=== PATIENT | male | born 1945 | race Caucasian/White ===

== ENCOUNTER 2022-04-15 10:32 | Inpatient (IN) ==
[2022-04-15] MEDS ORDERED: Ondansetron 4 MG/2 ML VIAL ONE (10:39)
[2022-04-15] MEDS ORDERED: *HR* Rocuronium Bromide 50 MG/5 ML VIAL ONE ×2 (10:39→13:34)
[2022-04-15] MEDS ORDERED: *HR* Propofol 200 MG/20 ML VIAL IVP ONE (10:39)
[2022-04-15] MEDS ORDERED: Lidocaine -MPF 2% 5 ML VIAL ONE (10:39)
[2022-04-15] MEDS ORDERED: *HR* FentaNYL (PF) 100 MCG/2 ML VIAL ONE (10:39)
[2022-04-15] MEDS ORDERED: *HR* Phenylephrine 10 MG/ML VIAL ONE (10:46)
[2022-04-15] MEDS ORDERED: CeFAZolin Syr 2,000MG/20 ML 2,000 MG/20 ML SYRINGE IVPB ONE (11:02)
[2022-04-15] MEDS ORDERED: Ringers Solution, Lactated 1,000 ML IVC SCH (11:15)
[2022-04-15] MEDS ORDERED: Ondansetron 4 MG/2 ML VIAL IVP PRN ×3 (11:17→21:04)
[2022-04-15] MEDS ORDERED: Famotidine 20 MG/2 ML VIAL IVP ONE (11:17)
[2022-04-15] MEDS ORDERED: Acetaminophen IV 1,000 MG/100 ML BAG IVPB ONE (11:17)
[2022-04-15] MEDS ORDERED: Ketorolac 30 MG/ML VIAL IVP PRN (11:17)
[2022-04-15] MEDS ORDERED: *HR* Labetalol 20 MG/4 ML SYRINGE IVP PRN ×2 (11:17→17:55)
[2022-04-15] MEDS ORDERED: *HR* HYDROmorphone 2 MG TABLET PO PRN (11:17)
[2022-04-15] MEDS ORDERED: *HR* OxyCODONE Immed Rel 5 MG TABLET PO PRN (11:17)
[2022-04-15] MEDS ORDERED: *HR* Remifentanil 2 MG VIAL IVP ONE (12:09)
[2022-04-15] MEDS ORDERED: ceFAZolin 1,000 MG, Sodium Chloride IRRigation 1,000 ML IR ONE (12:10)
[2022-04-15] MEDS ORDERED: Heparin 1,000 UNITS/500 mL 500 ML ONE ×2 (12:32→16:53)
[2022-04-15] MEDS ORDERED: Lidocaine -MPF 4% 5 ML AMPUL ONE (12:42)
[2022-04-15] MEDS ORDERED: *HR* Heparin 5,000 UNIT/ML VIAL ONE (15:28)
[2022-04-15] MEDS ORDERED: Albumin Human 5% 12.5 GM/250 ML IV.SOLN ONE (15:50)
[2022-04-15] MEDS ORDERED: *HR* Labetalol 20 MG/4 ML SYRINGE IVP ONE (16:09)
[2022-04-15] MEDS ORDERED: Sugammadex Sodium 200 MG/2 ML VIAL IV ONE (16:14)
[2022-04-15] MEDS: *HR* HYDROmorphone (PF) 1 MG/ML SYRINGE IVP PRN ×2 (16:47→16:57)
[2022-04-15] MEDS ORDERED: Naloxone 0.4 MG/ML INJ IVP PRN (17:55)
[2022-04-15] MEDS ORDERED: Acetaminophen 325 MG TABLET PO PRN (17:55)
[2022-04-15] MEDS ORDERED: *HR* HYDROcodone/Acet 5/325 mg TABLET PO PRN (17:55)
[2022-04-15] MEDS: *HR* OxyCODONE Immed Rel 5 MG TABLET PO PRN (18:38)
[2022-04-15] MEDS: *HR* Metformin 500 MG TABLET PO SCH (20:41)
[2022-04-15] MEDS ORDERED: Morphine Sulfate 2 MG/ML SYRINGE IVP ONE (21:03)
[2022-04-15] MEDS ORDERED: Metoclopramide 10 MG/2 ML VIAL IVP ONE (21:03)
[2022-04-16] MEDS: CeFAZolin 2 GM/120 ML BAG IVPB SCH ×3 (00:09→16:19)
[2022-04-16] MEDS: *HR* OxyCODONE Immed Rel 5 MG TABLET PO PRN (03:59)
[2022-04-16 04:54] LABS: Basophils % 0.2 %; Hematocrit 22.2 % (37.5-50.1); Hemoglobin 7.1 g/dL (12.9-16.9); Immature Granulocytes % 0.9 % (0-4); Lymphocytes # 0.4 K/mcL (0.6-4.6); Lymphocytes % 7.6 %; Mean Corpuscular Hemoglobin 28.1 pg (28.0-33.3); Mean Corpuscular Volume 87.7 fL (83.0-100.0); Mean Platelet Volume 10.7 fL (9.4-12.4); Monocytes # 0.3 K/mcL (0.0-1.3); Monocytes % 5.6 %; Neutrophils # 4.9 K/mcL (1.6-8.9); Platelet Count 152 K/mcL (140-400); Red Blood Count 2.53 M/mcL (4.19-5.50); Red Cell Distribution Width 13.2 % (11.5-14.5); Segmented Neutrophils % 85.7 %; White Blood Count 5.7 K/mcL (4.3-11.1)
[2022-04-16 05:04] LABS: BUN/Creatinine Ratio 16 (6-26); Blood Urea Nitrogen 14 mg/dL (8-23); Calcium 8.1 mg/dL (8.6-10.3); Carbon Dioxide 24 mEq/L (23-29); Chloride 104 mEq/L (98-107); Glucose 218 mg/dL (70-105); Osmolality,Calculated 297 (280-300); Potassium 4.2 mEq/L (3.5-5.1); Sodium 140 mEq/L (136-145); eGFR For African Americans > 60 (> 60); eGFR For Non-African Americans > 60 (> 60)
[2022-04-16] MEDS: *HR* Metformin 500 MG TABLET PO SCH (08:11)
[2022-04-16] MEDS ORDERED: Morphine Sulfate 2 MG/ML SYRINGE IVP ONE (08:23)
[2022-04-16] MEDS ORDERED: Aspirin Enteric Coated 81 MG Tablet PO SCH (09:00)
[2022-04-16] MEDS ORDERED: NON-FORMULARY MEDICATION 1 EACH EACH (Omega-3/Dha/Epa/Fish Oil [Cvs Fish Oil 1,000 Mg Soft PO SCH (09:00)
[2022-04-16] MEDS ORDERED: Multivit/Ca/Min/Fe/FA 1 TAB TABLET PO SCH (09:00)
[2022-04-16] MEDS ORDERED: Cholecalciferol (D-3) 1,000 UNIT (25MCG) TABLET PO SCH (09:00)
[2022-04-16 10:13] LABS: Hematocrit 37.6 % (37.5-50.1)
[2022-04-16 10:42] LABS: Hemoglobin 12.3 g/dL (12.9-16.9)
[2022-04-16 14:01] VITALS: PULSE 75
[2022-04-16 16:33] VITALS: BP 159/72; TEMP 98.4; O2SAT 96
== END 2022-04-16 18:50 | disposition home or self-care (01) | DRG 39 ==
LOC: SAMDAY 10:32 → 2NNU 17:43
PROVIDERS: ADMIT Surgery Vascular Surgery; ATTEND Surgery Vascular Surgery